=== PATIENT | female | born 1935 | race Hispanic/Latino ===

== ENCOUNTER 2021-12-11 08:55 | Observation (INO) | payer OTHER, MEDICAID ==
[2021-12-11] MEDS ORDERED: fentaNYL Citrate/PF 100 MCG/2 ML SYRINGE ONE (09:55)
[2021-12-11] MEDS ORDERED: SUGAMMADEX SODIUM 200 MG/2 ML VIAL ONE (09:55)
[2021-12-11] MEDS ORDERED: Lidocaine 1% w/Epinephrine 1:100K 20 ML VIAL ONE (10:06)
[2021-12-11] MEDS ORDERED: Bupivacaine 0.25% HCL 30 ML VIAL ONE (10:06)
[2021-12-11] MEDS ORDERED: cefOXitin 2 GM VIAL ONE (11:20)
[2021-12-11] MEDS ORDERED: Sodium Chloride 0.9% 100 ML ONE (11:20)
[2021-12-11] MEDS ORDERED: Acetaminophen 325 MG TAB PO PRN (12:56)
[2021-12-11] MEDS ORDERED: Mag-Al 1200 mg/1200 mg/30 ML UDCUP PO PRN (12:56)
[2021-12-11] MEDS ORDERED: Promethazine HCl 25 MG/ML VIAL IM PRN (12:56)
[2021-12-11] MEDS ORDERED: hydrALAZINE 20 MG/ML VIAL SLOW IVP PRN (12:56)
[2021-12-11] MEDS ORDERED: Dextrose 5% in Water 1,000 ML IV PRN (12:56)
[2021-12-11] MEDS ORDERED: Ondansetron PF 4 MG/2 ML Vial IVP PRN (12:56)
[2021-12-11] MEDS ORDERED: Morphine 4 MG/ML VIAL SLOW IVP PRN (12:56)
[2021-12-11] MEDS ORDERED: HYDROcodone/Acetaminophen 7.5/325 mg Tablet PO PRN (12:56)
[2021-12-11] MEDS ORDERED: Dextrose 50% Abboject 50 ML SYRINGE SLOW IVP PRN (12:56)
[2021-12-11] MEDS ORDERED: Calcium Carbonate 500 MG ChewTAB PO PRN (12:56)
[2021-12-11 15:52] VITALS: BMI 26.5
[2021-12-11] MEDS: D5 1/2 NS w/20 mEq KCL 1,000 ML IV SCH (17:20)
[2021-12-11] MEDS: Sodium Chloride 0.9% 1,000 ML IV SCH (18:17)
[2021-12-11] MEDS: cefOXitin 2 GM in Sodium Chloride 0.9% 100 ML IVPB SCH (19:19)
[2021-12-11] MEDS: Famotidine/PF 20 mg/2ml Vial SLOW IVP SCH (20:14)
[2021-12-11] MEDS: Famotidine 20 MG TAB PO SCH (20:14)
[2021-12-12] MEDS: D5 1/2 NS w/20 mEq KCL 1,000 ML IV SCH (01:38)
[2021-12-12] MEDS: cefOXitin 2 GM in Sodium Chloride 0.9% 100 ML IVPB SCH (03:06)
[2021-12-12] MEDS: Sodium Chloride 0.9% 1,000 ML IV SCH ×2 (03:08→07:19)
[2021-12-12] MEDS: Famotidine/PF 20 mg/2ml Vial SLOW IVP SCH (08:09)
[2021-12-12] MEDS: Famotidine 20 MG TAB PO SCH (08:09)
[2021-12-12 08:15] VITALS: BP 147/73; TEMP 97.9
== END 2021-12-12 11:11 | disposition home or self-care (01) ==
LOC: SDC 08:55 → T4-B 15:10
PROVIDERS: ADMIT Surgery; ATTEND Surgery
PROC: 0DTJ4ZZ Resection of Appendix, Percutaneous Endoscopic Approach (ICD-10-PCS; principal; 2021-12-11)
DX: K80.12 Calculus of gallbladder with acute and chronic cholecystitis without obstruction (principal)
CPT/HCPCS: 47562; C1713 ×2; 88304; 96374; 96376; G0378; J0694; J3490; J7050; S0020